=== PATIENT | male | born 1940 | race Caucasian/White ===

== ENCOUNTER 2019-10-20 05:35 | Day surgery (SDC) | payer MEDICARE ==
[~2019-10-20] VITALS: Ht 188 cm; Wt 129.3 kg
[~2019-10-20 05:35] MED LIST: HYDROCODON-ACE1 EA10 PO; METOPROLOL TART50 MG PO; OMEPRAZOLE20 MG PO; SIMVASTATIN40 MG PO
[2019-10-20] MEDS ORDERED: ASPIR 8181 MG PO (06:11)
--- NOTE | 2019-10-20 07:29 | NUR ---
PT ALERT, ORIENTED-BUT QUICKLY BEGAN TO EXPRESS TO ME HIS ANXIETY OVER WHAT HE SEEMS TO DEAL WITH REGARDING DIFFICULTY WAKING UP FOLLOWING SURGERY. PT DID SAY EUNICE DONOVAN HAS BEEN IN AND HAD TALK. PT SAID HE FEELS HE'S MORE IN CONTROL.PT SAID HE BELIEVES IN SCIENCE RESISTING PRAYER. EUNICE IN
--- NOTE | 2019-10-20 08:54 | NUR ---
10/20/19 0854 Mayelin Gambino 0834 PT ARRIVED TO PACU ON 6L VIA MASK, RESP EVEN AND UNLABORED. VSS. PT REACTIVE TO TACTILE STIMULI. 0836 PT WAKES TO TACTILE STIMULI AND DENIES PAIN AND NAUSEA. PT EASILY FALLS BACK TO SLEEP. 0845 PT TURNED ON TO LEFT SIDE PER MD ORDER. PILLOWS PLACED BETWEEN KNEES AND UNDER RIGHT ARM. 0850 O2 DECREASED TO 85% AND 3L NC PLACED AND PT ENCOURAGED TO DEEP BREATHE. EDUCATIONG GIVEN ON TURNING AND MEDICATION.
--- NOTE | 2019-10-20 09:10 | NUR ---
PATIENT BACK TO ROOM FROM RECOVER, DRY HEAVING. PROVIDED EMESIS BAG AND HAD PATIENT SMELL ALCHOHOL PAD. ADMINISTERED ZOFRAN WITH CARLOS RN PER PACU ORDERS. PATIENT REPORTED FEELING OF NAUSEA RESOLVED. TURNED TO LEFT SIDE. BEDSIDE REPORT PROVIDED TO NURSE DURING HANDOFF. VSS. RODRIGUEZ CATH IN PLACE, AND KINKED.
--- NOTE | 2019-10-20 09:50 | NUR ---
WITH CHEMO PERCAUTIONS PROTOCOL BEING PRACTICED, THE MYTOMYCIN WAS THEN DRAINED INTO A GRADUATED CYLINGER, THEN 30 ML OF FLUID DEFLATED FROM BALOON OF THE CATHETER, THEN REMOVED FROM URETHRA. PATIENT TOLERATED TX WELL. PATIENT LAYING SUPINE, NAUSEA CONTROLLED. PATIENT REPORTS NO PAIN, 0/10 ON PAIN SCALE. CALL LIGHT WITHIN REACH.
--- NOTE | 2019-10-20 12:06 | NUR ---
PATIENT UP TO BATHROOM, ABLE TO VOID. 250 ML OF URINE. BLADDER SCAN PVR <25. PATIENT STEADY ON FEET. MEETING CRITERIA AND VERBALIZES WANTING TO GO HOME. CALLED TO PROVIDE TIME FOR HER TO DRIVE TO [facility].
--- NOTE | 2019-10-20 13:11 | NUR ---
PATIENT SELF DRESSED, STEADY ON FEET. PROVIDED MESH PANTIES WITH PAD. PROVIDED DISCHARGE EDUCATION TO PATIENT, ANSWERED QUESTIONS AND CONCERNS. PROVIDED PATIENT WITH WHEELCHAIR RIDE TO FRONT. SCRIPT IN PATIENT TAKE HOME FOLDER WITH PATIENT.
--- NOTE | 2019-10-23 11:06 | OR ---
[facility] [address], [place] [address] Signed DATE OF OPERATION: 10/20/2019 SURGEON: Harini Alcantara MD PREOPERATIVE DIAGNOSES: 1. History of low-grade superficial bladder cancer, with multiple recurrences. 2. Evidence of tumor recurrence, on recent diagnostic cystoscopy. POSTOPERATIVE DIAGNOSES: 1. History of low-grade superficial bladder cancer, with multiple recurrences. 2. Evidence of tumor recurrence, on recent diagnostic cystoscopy. PROCEDURES: 1. Diagnostic cystoscopy. 2. Biopsy and fulguration of bladder lesion noted on recent cystoscopy. 3. Intravesical instillation of mitomycin chemotherapy. ANESTHESIA: General. ESTIMATED BLOOD LOSS: Minimal. COMPLICATIONS: None. SPECIMENS: Two small specimens obtained from the area suspicious for recurrence, located just medial to the right ureteral orifice in the area of a previous tumor resection. DRAINS: A 20-Mosotho two-way Flores catheter, capped, and taped to the patient's abdomen after instillation of intravesical mitomycin. INDICATIONS FOR PROCEDURE: Mr. Santoyo is a very pleasant 79-year-old gentleman with a history of superficial low-grade bladder cancer, with multiple previous recurrences. He recently underwent diagnostic cystoscopy, which did reveal a patchy area of erythema just medial to the right ureteral orifice, this at that time, was suspicious for tumor recurrence. He denies any recent irritative voiding symptoms or gross hematuria. He has agreed to Electronically Signed By: HARINI ALCANTARA MD 10/23/19 1106 PATIENT NAME: KATIA SANTOYO MARICARMEN OPERATIVE REPORT DATE OF : 42 REPORT #: [id number] PHYSICIAN: HARINI ALCANTARA MD PCP: ANABELA SUMNER MD REPORT IS CONFIDENTIAL AND NOT TO BE RELEASED WITHOUT AUTHORIZATION [facility] [address], [place] [address] Signed undergo cystoscopy with bladder biopsy for evaluation of this suspicious area just medial to his right ureteral orifice. OPERATIVE FINDINGS: On cystoscopy, there was no evidence of any overt bladder masses or bladder stones. Bilateral ureteral orifices are in their normal anatomical location. There is diffuse grade 3 to 4 bladder wall trabeculation throughout. There is a 1-2 single papillary lesions, along with an area of patchy erythema with a well-circumscribed area of patchy erythema present just medial to the right ureteral orifice. This area was resected using a bipolar loop and then the area of resection was cauterized thoroughly. The right ureteral orifice remained intact and without any evidence of iatrogenic damage during the procedure. Ureteroscopy reveals a lateral lobe hypertrophy, along with a significantly elevated bladder neck, this did make it more difficult for me to insert the resectoscope and did limit my movement while the resectoscope was then placed. Thankfully, this did not affect my ability to resect the area of suspicion. At the end of the resection, and after the area of resection was cauterized appropriately, a 20-Mosotho two-way Flores catheter was inserted into the patient's bladder. Once the bladder was drained, I instilled mitomycin (40 mg/20 mL) into the patient's bladder. The catheter was capped and then taped to the patient's abdomen. The area of concern . DESCRIPTION OF PROCEDURE: After informed consent was obtained, the patient was taken back to the operating room. He was transferred from [facility] to the operating room table, where general anesthesia was induced. He was placed in the dorsal lithotomy position and his genitalia prepped and draped in standard sterile fashion. The patient's urethra was dilated using Melissa sounds from 18-Mosotho to 26-Mosotho without difficulty. Using a visual obturator, I inserted the resectoscope into the patient's bladder. I did meet a significant amount of resistance as I was trying to pass through the elevated bladder neck. I was ultimately able to pass the resectoscope into the bladder successfully. A thorough diagnostic cystoscopy was then performed. Please see above findings. I noted the area of suspicion just medial to the right ureteral orifice, this area was then gently resected using a bipolar loop. I was very careful to avoid the right ureteral orifice, both during resection and during cauterization of the resection bed. Once this very small subcentimeter area was resected, I cauterized the area again using the bipolar loop. Once I was satisfied that hemostasis had been achieved, the biopsy specimens were flushed from the patient's bladder and placed in a specimen cup to be sent for Electronically Signed By: HARINI ALCANTARA MD 10/23/19 1106 PATIENT NAME: KATIA SANTOYO OPERATIVE REPORT DATE OF : 42 REPORT #: [id number] PHYSICIAN: HARINI ALCANTARA MD PCP: ANABELA SUMNER MD REPORT IS CONFIDENTIAL AND NOT TO BE RELEASED WITHOUT AUTHORIZATION [facility] [address] [place] [id number] Signed pathology. The resectoscope was then removed and a 20-Mosotho two-way Flores catheter was inserted into the patient's bladder and the irrigation was drained from the patient's bladder through the catheter. The mitomycin was instilled into the patient's bladder via the catheter and once all the mitomycin was instilled, the catheter was then capped and taped to his abdomen. The procedure was then terminated. The patient tolerated the procedure well without any complication. The patient will now be transferred to the postanesthesia care unit in stable condition. DISPOSITION: I discussed the details of today's procedure with the patient's and answered all of her questions. He will remain here in the PACU to undergo mitomycin instillation minutes during treatment. The catheter will be removed and then he will attempt a voiding trial once his bladder fills. He will be sent home today with Cipro 500 mg p.o. b.i.d. for a total of 5 days along with Daphne 5/325 dispense #10 as needed for pain. He has been scheduled to return to clinic in 6 to 8 weeks for his 1st postoperative visit. At that time, we will order a KUB to establish his current stone burden, given his history of nephrolithiasis. MD YUDELKA Loredo/LULÚ /[id number] Copies: ~ Electronically Signed By: HARINI ALCANTARA MD 10/23/19 1106 PATIENT NAME: KATIA SANTOYO OPERATIVE REPORT DATE OF : 42 REPORT #: [id number] PHYSICIAN: HARINI ALCANTARA MD PCP: ANABELA SUMNER MD REPORT IS CONFIDENTIAL AND NOT TO BE RELEASED WITHOUT AUTHORIZATION
--- NOTE | 2019-10-31 13:05 | PATH ---
[facility] [address] [facility] [place], [place] [address] Signed SPECIMEN(S): A PREVIOUS TUMOR RESECTION SITE SPECIMEN SOURCE: A. PREVIOUS TUMOR RESECTION SITE CLINICAL HISTORY: Malignant neoplasm of bladder, BPH. 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 - Negative for malignancy. COMMENT: Given the background inflammation, the atypia is interpreted as reactive/regenerative in nature. No residual urothelial carcinoma in situ is seen. As part of [employer]' Quality Improvement Program, this case was reviewed by another member of our pathology staff. NAL:cml:C2NR MICROSCOPIC EXAMINATION: Histologic sections of all submitted blocks are examined by light microscopy. Immunohistochemical stains (with appropriately staining controls) were performed. The urothelium shows no aberrant CK20 positivity and p53 shows no significant increased expression. These findings, together with the gross examination, support the pathologic diagnosis. GROSS DESCRIPTION: The specimen, labeled "RM, bladder biopsy," is received in formalin and consists of two pink-galicia, rubbery tissue fragment that aggregate measure 1.0 x 0.3 x 0.3 cm. Specimen is entirely submitted in cassette (A1). JS (under the direct supervision of a pathologist) The Gross Description was prepared using a voice recognition system. The report was reviewed for accuracy; however, sound-alike word errors, addition and/or deletions may occur. If there is any question about this report, please contact Client Services. PERFORMING LABORATORY: The technical component was performed by [employer], Reginald Garg, PATIENT NAME: KATIA ALVARADO PATHOLOGY DATE OF : 42 REPORT #: [id number] PHYSICIAN: FILIPE HUERTAS PCP: ANABELA SUMNER MD REPORT IS CONFIDENTIAL AND NOT TO BE RELEASED WITHOUT AUTHORIZATION [facility] [address] [place], [place] [address] [place] [address] (Induction Heat Treater: Ryanne East MD; CLIA# [id number]). Professional interpretation was performed by [facility], [address] [address] (CLIA# [id number]). Diagnostician: Isis Mattson MD Pathologist Electronically Signed 10/23/2019 Copies: ~ PATIENT NAME: KATIA ALVARADO PATHOLOGY DATE OF : 42 REPORT #: [id number] PHYSICIAN: FILIPE HUERTAS PCP: ANABELA SUMNER MD REPORT IS CONFIDENTIAL AND NOT TO BE RELEASED WITHOUT AUTHORIZATION
== END 2019-10-20 12:10 | disposition home or self-care (01) ==
LOC: DS 05:35 → OPS 05:35 → DS 06:45 → OPS 12:10
PROVIDERS: Urology
PROC: 0TBB8ZX Excision of Bladder, Via Natural or Artificial Opening Endoscopic, Diagnostic (ICD-10-PCS; principal; 2019-10-20 06:45)
DX: N30.20 Other chronic cystitis without hematuria (principal); N40.0 Benign prostatic hyperplasia without lower urinary tract symptoms; Z85.51 Personal history of malignant neoplasm of bladder; Z79.899 Other long term (current) drug therapy; Z79.82 Long term (current) use of aspirin
CPT/HCPCS: 00912; 88305; 88341; 88342; J0696; J1100; J2001; J2405; J2704; J3010; J7121; J9280

== ENCOUNTER 2021-09-12 16:25 | Emergency (ER) | payer MEDICARE ==
[~2021-09-12] VITALS: Ht 188 cm; Wt 124.4 kg
[~2021-09-12 16:25] MED LIST changes: +ASPIR 8181 MG PO
--- NOTE | 2021-09-12 19:27 | EKG ---
[facility] [address] [facility] [place] [address] Signed Normal sinus rhythm Nonspecific ST and T wave abnormality Abnormal ECG When compared with ECG of 14-OCT-2019 11:05, T wave inversion no longer evident in Inferior leads Confirmed by ANN VERGARA MD ([id number]) on 09/12/2021 7:27:14 PM Electronically Signed By: ANN VERGARA MD 09/12/211926 PATIENT NAME: CHRISTIANOKATIADEXTER HERNADEZ Electrocardiogram DATE OF : 42 PHYSICIAN: ANN VERGARA MD REPORT #: [id number] REPORT IS CONFIDENTIAL AND NOT TO BE RELEASED WITHOUT AUTHORIZATION
== END 2021-09-12 19:35 | disposition short-term general hospital (02) ==
LOC: ED 16:25
DX: I21.4 Non-ST elevation (NSTEMI) myocardial infarction (principal); I10 Essential (primary) hypertension; E78.00 Pure hypercholesterolemia, unspecified; Z87.891 Personal history of nicotine dependence; Z79.899 Other long term (current) drug therapy; Z79.82 Long term (current) use of aspirin; Z20.822 Contact with and (suspected) exposure to COVID-19
CPT/HCPCS: 36415; 71045; 80053; 84484; 85025; 96365; 96376; 99285-25; C9803; J1644; U0003